=== PATIENT | female | born 1960 | race African-American/Black ===

== ENCOUNTER 2016-07-18 07:59 | Emergency (ER) | payer OTHER ==
[2016-07-18 08:07] VITALS: BP 134/82; PULSE 91; TEMP 98.3; BMI 38.4
--- NOTE | 2016-07-18 08:28 | PDOC ---
History of Present Illness - General Chief Complaint: Pain Stated Complaint: PAIN Time Seen by Provider: 07/18/16 08:16 History Source: Patient Exam Limitations: No Limitations - History of Present Illness Initial Comments: CHIEF COMPLAINT: 56 y/o afebrile female c/o right buttock and leg pain x 5 days. HISTORY OF PRESENT ILLNESS: The patient states she was doing "nothing" when the pain started. It goes from her right buttock all the way down the back of her leg to her right foot. She states she also has calf pain. She has been taking tylenol with little relief. The patient denies f/c, n/v/d, fall, trauma to back, abd pain, bowel/bladder incontinence, redness/swelling/warmth to right calf. Vital signs on arrival are within normal limits. REVIEW OF SYSTEMS: GENERAL/CONSTITUTIONAL: No fever/chills. No weakness. No weight change. GENITOURINARY: No dysuria, frequency, or change in urination. MUSCULOSKELETAL: +right leg and calf pain. No neck or back pain. SKIN: No rash or easy bruising. NEUROLOGIC: No headache, vertigo, loss of consciousness, or loss of sensation. PHYSICAL EXAM: GENERAL: The patient is awake, alert, and fully oriented, in no acute distress. She is ambulatory with normal gait. HEAD: Normal with no signs of trauma. ENT: Pupils equal, round and reactive to light, extraocular movements intact, sclera anicteric, conjunctiva clear. Neck supple. ABDOMEN: Soft, non-distended, non-tender even to deep palpation, no hepatomegaly or splenomegaly, no masses. BACK: No midline lumbar spine TTP or step offs. No TTP of lumbar paravertebral muscles. Pain reproduced down right leg with palpation of right gluteal muscle. EXTREMITIES: Normal range of motion, no edema. No warmth or erythema to right LE. TTP of right calf with positive minor's sign. NEUROLOGICAL: Normal speech, normal gait. CN II-XII grossly intact. SKIN: Warm, dry, normal turgor, no rashes or lesions noted. Past History - Past Medical History Allergies/Adverse Reactions: Allergies Allergy/AdvReac Type Severity Reaction Status Date / Time No Known Allergies Allergy Verified 07/18/16 08:05 Home Medications: Ambulatory Orders No Home Medications 0 dose .ROUTE UTDICT 08/22/13 Pantoprazole Sodium [Protonix -] 40 mg PO DAILY #30 tablet.ec 06/19/14 Other medical history: NONE - Psycho/Social/Smoking Cessation Hx Anxiety: No Suicidal Ideation: No Smoking History: Never smoked Have you smoked in the past 12 months: No Hx Alcohol Use: No Drug/Substance Use Hx: No Substance Use Type: None *Physical Exam - Vital Signs Last Vital Signs Temp Pulse Resp BP Pulse Ox 98.3 F 91 H 18 134/82 99 07/18/16 08:01 07/18/16 08:01 07/18/16 08:01 07/18/16 08:01 07/18/16 08:01 Medical Decision Making - Medical Decision Making A/P: 56 y/o afebrile female with sciatica. Will r/o DVT. Plan is as follows: 1. Doppler ultrasound right LE. Ultrasound right LE IMPRESSION: No evidence of DVT. Gave patient the results. Will give Toradol for sciatica pain. Suggested she take 600mg of OTC motrin every 6 hours with food for pain and stretch. instructed her to f/u with her doctor within 1 week if no improvement in symptoms. The patient verbalizes understanding of all instructions, has no further questions and is awaiting discharge. *DC/Admit/Observation/Transfer Diagnosis at time of Disposition: Sciatic leg pain - Discharge Dispostion Disposition: HOME Condition at time of disposition: Good - Referrals Referrals: STAFF,NOT ON [Primary Care Provider] - - Patient Instructions Printed Discharge Instructions: DI for Sciatica Additional Instructions: Discharge instructions: -Your ultrasound was negative for blood clot. -Take 600mg of over the counter Ibuprofen every 6 hours with food for pain -Stretch your affected leg multiple times per day -Follow up with your doctor in 1 week if no improvement in symptoms
[2016-07-18] MEDS ORDERED: KETOROLAC TROMETHAMINE 60 MG/2 ML VIAL IM ONE (09:55)
[2016-07-18] MEDS ORDERED: KETOROLAC TROMETHAMINE 60 MG/2 ML VIAL ONE (09:59)
== END 2016-07-18 10:14 | disposition home or self-care (01) ==
LOC: JER 07:59 → JERFT 07:59
PROC: 3E0233Z Introduction of Anti-inflammatory into Muscle, Percutaneous Approach (ICD-10-PCS; principal; 2016-07-18)
DX: M54.31 Sciatica, right side (principal)
CPT/HCPCS: 93971-TC; 99281-25